=== PATIENT | male | born 1950 | race Caucasian/White ===

== ENCOUNTER 2016-11-28 09:17 | Emergency (ER) | payer OTHER ==
[~2016-11-28] VITALS: Ht 165.1 cm; Wt 68.0 kg
[~2016-11-28 09:17] MED LIST: ADVAIR 250/501 EA INH; ADVAIR 500/501 E1 INH; ALBUTEROL0.09 MG/A2 INH; ASPIRIN CHEWABL81 MG PO; BLOOD PRESSURE; CLARITIN10 MG PO; CLONIDINE0.1 MG; FERROUS SULFATE; FIORICET 325 MG1 TAB PO; FLOVENT 110 M110 MCG INH; FUROSEMIDE40 MG; LISINOPRIL AND1 TAB PO; MEDROL DOSEPAK4 MG PO; METOPROLOL SR50 MG; NORCO 325 MG-51 TAB PO; NORVASC5 MG; PREDNICOT20 MG PO; PROTONIX20 MG PO; PROVENTIL0.09 MG/AC IH; SIMVASTATIN10 MG PO; SPIRIVA -- 3018 MCG PO; TESSALON PERLE200 MG PO; VENTOLIN H0.09 MG/AC INH; VISTARIL25 M1 PO; ZITHROMAX Z PA250 MG PO; ZOFRAN ODT4 MG SL
[2016-11-28] MEDS ORDERED: SUNMARK OMEPRAZ20 M1 PO (09:29)
[2016-11-28] MEDS ORDERED: CORTISPORIN SUS10 ML OT (09:43)
== END 2016-11-28 09:54 | disposition home or self-care (01) ==
LOC: ED 09:17
DX: T16.1XXA Foreign body in right ear, initial encounter (principal); I10 Essential (primary) hypertension; J44.9 Chronic obstructive pulmonary disease, unspecified; K21.9 Gastro-esophageal reflux disease without esophagitis; Z79.899 Other long term (current) drug therapy; Z79.82 Long term (current) use of aspirin; F17.200 Nicotine dependence, unspecified, uncomplicated; V89.2XXA Person injured in unspecified motor-vehicle accident, traffic, initial encounter; Y93.89 Activity, other specified; Y92.89 Other specified places as the place of occurrence of the external cause; Y99.9 Unspecified external cause status

== ENCOUNTER 2017-10-08 11:22 | Emergency (ER) | payer OTHER ==
[~2017-10-08] VITALS: Wt 72.6 kg
[~2017-10-08 11:22] MED LIST changes: +CORTISPORIN SUS10 ML OT; +SUNMARK OMEPRAZ20 M1 PO
[2017-10-08] MEDS ORDERED: Motrin,Rufen800 MG PO (12:21)
== END 2017-10-08 12:26 | disposition home or self-care (01) ==
LOC: ED 11:22
DX: S39.012A Strain of muscle, fascia and tendon of lower back, initial encounter (principal); J44.9 Chronic obstructive pulmonary disease, unspecified; I10 Essential (primary) hypertension; K21.9 Gastro-esophageal reflux disease without esophagitis; N17.9 Acute kidney failure, unspecified; E78.5 Hyperlipidemia, unspecified; F17.200 Nicotine dependence, unspecified, uncomplicated; F10.10 Alcohol abuse, uncomplicated; Z90.89 Acquired absence of other organs; Z79.82 Long term (current) use of aspirin; Z79.899 Other long term (current) drug therapy; W22.8XXA Striking against or struck by other objects, initial encounter; Y93.89 Activity, other specified; Y92.89 Other specified places as the place of occurrence of the external cause; Y99.8 Other external cause status

== ENCOUNTER 2019-06-09 18:37 | Emergency (ER) | payer OTHER ==
[~2019-06-09] VITALS: Ht 165.1 cm; Wt 68.5 kg
[~2019-06-09 18:37] MED LIST changes: +Motrin,Rufen800 MG PO
[2019-06-09] MEDS ORDERED: PREDNISONE20 M1 PO (20:10)
== END 2019-06-09 20:25 | disposition home or self-care (01) ==
LOC: ED 18:37
DX: L24.0 Irritant contact dermatitis due to detergents (principal); F17.200 Nicotine dependence, unspecified, uncomplicated; Z79.82 Long term (current) use of aspirin; Z79.899 Other long term (current) drug therapy

== ENCOUNTER 2019-07-02 18:36 | Emergency (ER) | payer OTHER ==
[~2019-07-02] VITALS: Ht 167.6 cm; Wt 70.3 kg
[~2019-07-02 18:36] MED LIST changes: +PREDNISONE20 M1 PO
[2019-07-02] MEDS ORDERED: ELIMITE 5%60 GM T (18:47)
[2019-07-02] MEDS ORDERED: PREDNISONE20 M1 PO (18:47)
== END 2019-07-02 19:09 | disposition home or self-care (01) ==
LOC: ED 18:36
DX: L30.9 Dermatitis, unspecified (principal); F17.200 Nicotine dependence, unspecified, uncomplicated; Z79.899 Other long term (current) drug therapy; Z79.82 Long term (current) use of aspirin

== ENCOUNTER → 2021-07-26 | Outpatient (CLI) | payer OTHER ==
[~2021-07-26] MED LIST changes: +ELIMITE 5%60 GM T
== END | disposition home or self-care (01) ==
LOC: CT 12:57
PROVIDERS: ATTEND Nurse Practitioner Primary Care
DX: R41.0 Disorientation, unspecified (principal); R47.01 Aphasia

== ENCOUNTER → 2021-08-01 | Outpatient (CLI) | payer OTHER | END | disposition home or self-care (01) | LOC: US 09:00 | PROVIDERS: ATTEND Nurse Practitioner Primary Care | DX: I71.4 Abdominal aortic aneurysm, without rupture (principal) ==

== ENCOUNTER → 2021-08-19 | Outpatient (CLI) | payer OTHER | END | disposition home or self-care (01) | LOC: MRI 08-12 09:00 | PROVIDERS: ATTEND Nurse Practitioner Primary Care | DX: R51.9 Headache, unspecified (principal); R47.01 Aphasia; I10 Essential (primary) hypertension; R41.0 Disorientation, unspecified; G89.29 Other chronic pain ==

== ENCOUNTER 2022-02-02 01:39 | Emergency (ER) | payer OTHER ==
[~2022-02-02] VITALS: Ht 167.6 cm; Wt 77.1 kg
[2022-02-02 04:54] LABS: BASO % 0.5 % (0.0-1.0); EOS # 0.2 10*3/uL (0.0-0.4); EOS % 3.1 % (1.0-4.0); HEMATOCRIT 44.8 % (42.0-52.0); LYMPH # 1.7 10*3/uL (1.3-4.4); LYMPH % 30.5 % (27.0-41.0); MEAN CORPUSCULAR HGB 27.3 pg (27.0-31.0); MEAN CORPUSCULAR HGB CONC 32.1 g/dl (33.0-37.0); MEAN PLATELET VOLUME 9.8 fl (9.6-12.3); MONO # 0.4 10*3/uL (0.1-1.0); MONO % 7.5 % (3.0-9.0); NEUT # 3.2 10*3/uL (2.3-7.9); PLATELET COUNT AUTOMATED 232 10*3/uL (130-400); RED BLOOD COUNT 5.27 10*6/uL (4.50-5.90); RED CELL DISTRI WIDTH 14.3 % (0-14.5); WHITE BLOOD COUNT 5.5 10*3/uL (4.8-10.8)
[2022-02-02 05:21] LABS: BUN 14 mg/dl (7-24); CHLORIDE 104 mmol/L (98-107); CREATININE 0.99 mg/dL (0.70-1.30); POTASSIUM 3.7 mmol/L (3.5-5.1); SODIUM 135 mmol/L (136-145)
[2022-02-02] MEDS ORDERED: NAPROXEN250 MG PO (08:50)
[2022-02-02] MEDS ORDERED: CEPHALEXIN500 M1 PO (08:50)
[2022-02-02] MEDS ORDERED: TYLENOL325 M1 PO (08:50)
== END 2022-02-02 09:30 | disposition home or self-care (01) ==
LOC: ED 01:39
PROVIDERS: Emergency Medicine
DX: S51.011A Laceration without foreign body of right elbow, initial encounter (principal); F10.920 Alcohol use, unspecified with intoxication, uncomplicated; W18.39XA Other fall on same level, initial encounter; Y93.89 Activity, other specified; Y92.89 Other specified places as the place of occurrence of the external cause; Y99.8 Other external cause status

== ENCOUNTER → 2023-08-20 | Outpatient (CLI) | payer OTHER ==
[~2023-08-20] MED LIST changes: +CELECOXIB200 M1 PO; +CEPHALEXIN500 M1 PO; +MEMANTINE HCL10 MG PO; +METOPROLOL SUCC25 M2 PO; +NAPROXEN250 MG PO; +NATURE'S BLEND F1 MG PO; +NEURONTIN300 MG PO; +PRAVASTATIN SOD40 MG PO; +TYLENOL325 M1 PO
[2023-08-20 16:05] LABS: POTASSIUM 4.4 mmol/L (3.4-5.1)
== END | disposition home or self-care (01) ==
LOC: MRI 14:00 → LAB 14:37
PROVIDERS: ATTEND Internal Medicine
DX: I67.89 Other cerebrovascular disease (principal); J43.9 Emphysema, unspecified; R42 Dizziness and giddiness; R53.1 Weakness

== ENCOUNTER → 2023-08-21 | Outpatient (CLI) | payer OTHER | END | disposition home or self-care (01) | LOC: CT 01:08 | PROVIDERS: ATTEND Internal Medicine | DX: I67.82 Cerebral ischemia (principal) ==

== ENCOUNTER 2024-04-01 21:25 | Inpatient (IN) | payer OTHER ==
[~2024-04-01] VITALS: Ht 165.1 cm; Wt 74.8 kg
[2024-04-01 21:28] VITALS: BP 97/59
[2024-04-01] MEDS ORDERED: methylPREDNISolone sod succ 125 MG VIAL IM ONE (21:30)
[2024-04-01] MEDS ORDERED: SODIUM CHLORIDE 0.9% 1,000 ML IV ONE ×3 (21:40→23:45)
[2024-04-01] MEDS ORDERED: Ceftriaxone Sodium 1 GM/10 ML SYR IV ONE (21:40)
[2024-04-01 21:45] LABS: BASO % 0.3 % (0.0-1.0); EOS % 0.1 % (1.0-4.0); LYMPH # 1.1 10*3/uL (1.3-4.4); LYMPH % 7.6 % (27.0-41.0); MEAN CELL VOLUME 86.5 fl (80.0-94.0); MEAN CORPUSCULAR HGB 26.8 pg (27.0-31.0); MEAN PLATELET VOLUME 10.4 fl (9.6-12.3); MONO % 7.3 % (3.0-9.0); NEUT # 11.8 10*3/uL (2.3-7.9); NEUT % 84.5 % (47.0-73.0); PLATELET COUNT AUTOMATED 265 10*3/uL (130-400); RED BLOOD COUNT 6.01 10*6/uL (4.50-5.90); RED CELL DISTRI WIDTH 14.7 % (0-14.5); WHITE BLOOD COUNT 13.9 10*3/uL (4.8-10.8)
[2024-04-01 22:01] LABS: POTASSIUM 4.6 mmol/L (3.4-5.1); TOTAL PROTEIN 8.1 gm/dL (6.0-8.0)
[2024-04-01] MEDS ORDERED: METOPROLOL SUCC25 M2 PO (22:37)
[2024-04-01] MEDS ORDERED: AZITHROMYCIN 250 MG TAB PO ONE (22:40)
[2024-04-01] MEDS ORDERED: NICOTINE POLACRILEX 4 MG GUM PO PRN (23:35)
[2024-04-01] MEDS ORDERED: Magnesium Hydroxide 30 ML UDC PO PRN (23:35)
[2024-04-01] MEDS ORDERED: BISACODYL 5 MG TAB PO PRN (23:35)
[2024-04-01] MEDS ORDERED: Nicotine 21 MG PATCH T PRN (23:35)
[2024-04-01] MEDS ORDERED: Albuterol Sulf/Ipratropium 3 ML VIAL NEB SCH (23:40)
[2024-04-02] MEDS ORDERED: Chlordiazepoxide Hydrochlori 25 MG CAP PO SCH
[2024-04-02] MEDS ORDERED: Benzocaine/Menthol 1 LOZ LOZENGE PO PRN (01:00)
[2024-04-02] MEDS ORDERED: MENTHOL USP 1 LOZ LOZENGE PO PRN (01:00)
[2024-04-02 01:15] VITALS: BP 134/90
[2024-04-02 02:26] LABS: HEMATOCRIT 44.5 % (42.0-52.0); MEAN CELL VOLUME 86.4 fl (80.0-94.0); MEAN CORPUSCULAR HGB CONC 31.2 g/dl (33.0-37.0); MEAN PLATELET VOLUME 10.2 fl (9.6-12.3); PLATELET COUNT AUTOMATED 189 10*3/uL (130-400); RED BLOOD COUNT 5.15 10*6/uL (4.50-5.90); RED CELL DISTRI WIDTH 14.6 % (0-14.5); WHITE BLOOD COUNT 11.5 10*3/uL (4.8-10.8)
[2024-04-02 02:31] LABS: MANUAL DIFF REFLEX YES
[2024-04-02 02:51] LABS: FREE T4 0.99 ng/dl (0.89-1.76)
[2024-04-02 02:53] LABS: POTASSIUM 5.7 mmol/L (3.4-5.1)
[2024-04-02 02:57] LABS: PLATELET SUFFICIENCY NORMAL (NORMAL); TOTAL CELLS COUNTED 100 #CELLS
[2024-04-02] MEDS ORDERED: CALCIUM GLUC IN NACL, ISO-OSM 100 ML IV ONE (03:30)
[2024-04-02] MEDS ORDERED: DEXTROSE 10 % IN WATER 250 ML DEHP.FR.BG IV ONE (03:35)
[2024-04-02] MEDS ORDERED: Insulin Lispro, Recombinant 1 UNIT/0.01 ML UN SC ONE (03:35)
[2024-04-02] MEDS ORDERED: CALCIUM GLUCONATE 1 GM/10 ML VIAL ONE (04:28)
[2024-04-02] MEDS ORDERED: INSULIN LISPRO 1 UNIT/0.01 ML SQ ONE (04:30)
[2024-04-02] MEDS ORDERED: SODIUM POLYSTYRENE SULFONATE 15 GM/60 ML BOT PO ONE (06:35)
[2024-04-02] MEDS ORDERED: DEXTROSE 10 % IN WATER 250 ML IV PRN (06:35)
[2024-04-02] MEDS ORDERED: INSULIN LISPRO 1 UNIT/0.01 ML SQ SCH (07:30)
[2024-04-02 08:00] VITALS: BP 138/74
[2024-04-02 08:01] LABS: POTASSIUM 4.9 mmol/L (3.4-5.1)
[2024-04-02] MEDS ORDERED: GUAIFENESIN 600 MG TAB ER PO SCH (10:00)
[2024-04-02] MEDS ORDERED: HEPARIN SODIUM 5,000 UNIT/ML VIAL SC SCH (10:00)
[2024-04-02] MEDS ORDERED: Thiamine 100 MG TAB PO SCH (10:00)
[2024-04-02] MEDS ORDERED: MULTIVITAMIN 1 TAB TAB PO SCH (10:00)
[2024-04-02] MEDS ORDERED: FOLIC ACID 1 MG TAB PO SCH (10:00)
[2024-04-02] MEDS ORDERED: methylPREDNISolone sod succ 40 MG VIAL IV SCH (10:00)
[2024-04-02 12:00] VITALS: BP 158/98
[2024-04-02 13:20] LABS: POTASSIUM 4.8 mmol/L (3.4-5.1)
[2024-04-02 14:00] VITALS: BP 136/81
[2024-04-02] MEDS ORDERED: Metoprolol Tartrate 5 MG/5 ML VIAL IV ONE (16:45)
[2024-04-02 16:58] VITALS: BP 139/77
[2024-04-02 20:00] VITALS: BP 131/94
[2024-04-02] MEDS ORDERED: Ceftriaxone Sodium 1 GM in SYRINGE INFUSION 10 ML IV SCH (22:00)
[2024-04-02] MEDS ORDERED: METOPROLOL SUCCINATE XR 25 MG TAB PO SCH (22:00)
[2024-04-02] MEDS ORDERED: AZITHROMYCIN 250 ML IV SCH (22:00)
[2024-04-03] VITALS: BP 138/68
[2024-04-03] MEDS ORDERED: Chlordiazepoxide Hydrochlori 25 MG CAP PO SCH (02:00)
[2024-04-03 05:15] LABS: POTASSIUM 4.8 mmol/L (3.4-5.1)
[2024-04-03] MEDS ORDERED: OMEPRAZOLE 20 MG CAP PO SCH (06:00)
[2024-04-03 06:11] LABS: BASO % 0.1 % (0.0-1.0); HEMATOCRIT 39.6 % (42.0-52.0); LYMPH # 0.6 10*3/uL (1.3-4.4); LYMPH % 4.9 % (27.0-41.0); MEAN CELL VOLUME 84.8 fl (80.0-94.0); MEAN CORPUSCULAR HGB 27.2 pg (27.0-31.0); MEAN CORPUSCULAR HGB CONC 32.1 g/dl (33.0-37.0); MEAN PLATELET VOLUME 11.4 fl (9.6-12.3); MONO # 0.7 10*3/uL (0.1-1.0); MONO % 5.3 % (3.0-9.0); NEUT # 11.4 10*3/uL (2.3-7.9); NEUT % 89.5 % (47.0-73.0); PLATELET COUNT AUTOMATED 213 10*3/uL (130-400); RED BLOOD COUNT 4.67 10*6/uL (4.50-5.90); RED CELL DISTRI WIDTH 14.6 % (0-14.5); WHITE BLOOD COUNT 12.7 10*3/uL (4.8-10.8)
[2024-04-03 08:00] VITALS: BP 156/85
[2024-04-03] MEDS ORDERED: Pantoprazole Sodium 40 MG TAB PO SCH (09:15)
[2024-04-03] MEDS ORDERED: LISINOPRIL 10 MG TAB PO SCH (10:00)
[2024-04-03] MEDS ORDERED: Piperacillin Sodium/Tazobact 2.25 GM in SODIUM CHLORIDE 0.9% 50 ML IV SCH (10:00)
[2024-04-03] MEDS ORDERED: HYDROCHLOROTHIAZIDE 12.5 MG CAP PO SCH (10:00)
[2024-04-03] MEDS ORDERED: GABAPENTIN 300 MG CAP PO SCH (10:00)
[2024-04-03] MEDS ORDERED: METOPROLOL SUCCINATE XR 50 MG TAB PO SCH (10:00)
[2024-04-03] MEDS ORDERED: ASPIRIN, CHEWABLE 81 MG TAB PO SCH (10:00)
[2024-04-03 12:00] VITALS: BP 149/80
[2024-04-03 16:00] VITALS: BP 144/78
[2024-04-03 20:00] VITALS: BP 129/76
[2024-04-03] MEDS ORDERED: Mirtazapine 15 MG TAB PO SCH (22:00)
[2024-04-04] VITALS: BP 138/86
[2024-04-04] MEDS ORDERED: Chlordiazepoxide Hydrochlori 25 MG CAP PO SCH (02:00)
[2024-04-04] MEDS ORDERED: Pantoprazole Sodium 40 MG VIAL IV SCH (06:00)
[2024-04-04 06:28] LABS: POTASSIUM 4.2 mmol/L (3.4-5.1)
[2024-04-04 06:43] LABS: HEMATOCRIT 37.3 % (42.0-52.0); LYMPH # 0.7 10*3/uL (1.3-4.4); LYMPH % 8.3 % (27.0-41.0); MEAN CELL VOLUME 82.7 fl (80.0-94.0); MEAN CORPUSCULAR HGB 27.5 pg (27.0-31.0); MEAN CORPUSCULAR HGB CONC 33.2 g/dl (33.0-37.0); MEAN PLATELET VOLUME 11.2 fl (9.6-12.3); MONO # 0.5 10*3/uL (0.1-1.0); MONO % 5.8 % (3.0-9.0); NEUT % 85.4 % (47.0-73.0); PLATELET COUNT AUTOMATED 204 10*3/uL (130-400); RED BLOOD COUNT 4.51 10*6/uL (4.50-5.90); RED CELL DISTRI WIDTH 14.6 % (0-14.5); WHITE BLOOD COUNT 8.2 10*3/uL (4.8-10.8)
[2024-04-04 08:00] VITALS: BP 134/88
[2024-04-04] MEDS ORDERED: Pantoprazole Sodium 40 MG IV SCH (10:00)
[2024-04-04 12:00] VITALS: BP 146/79
[2024-04-04 16:00] VITALS: BP 154/86
[2024-04-04 20:00] VITALS: BP 152/89
[2024-04-05] VITALS: BP 136/86
[2024-04-05 06:31] LABS: BASO % 0.1 % (0.0-1.0); HEMATOCRIT 38.7 % (42.0-52.0); LYMPH # 0.9 10*3/uL (1.3-4.4); MEAN CELL VOLUME 83.2 fl (80.0-94.0); MEAN CORPUSCULAR HGB 27.3 pg (27.0-31.0); MEAN CORPUSCULAR HGB CONC 32.8 g/dl (33.0-37.0); MEAN PLATELET VOLUME 10.2 fl (9.6-12.3); MONO # 0.3 10*3/uL (0.1-1.0); MONO % 4.4 % (3.0-9.0); NEUT # 5.7 10*3/uL (2.3-7.9); NEUT % 80.9 % (47.0-73.0); PLATELET COUNT AUTOMATED 224 10*3/uL (130-400); RED BLOOD COUNT 4.65 10*6/uL (4.50-5.90); RED CELL DISTRI WIDTH 14.6 % (0-14.5)
[2024-04-05 08:00] VITALS: BP 167/92
[2024-04-05 08:10] LABS: POTASSIUM 4.4 mmol/L (3.4-5.1)
[2024-04-05] MEDS ORDERED: PROTONIX40 MG PO (10:45)
[2024-04-05] MEDS ORDERED: TAB-A-VITE TA400 MCG PO (10:45)
[2024-04-05] MEDS ORDERED: NATURE'S BLEND100 M2 PO (10:45)
[2024-04-05] MEDS ORDERED: METOPROLOL SUCC50 M1 PO (10:45)
[2024-04-05] MEDS ORDERED: VIBRAMYCIN100 MG PO (10:45)
[2024-04-05] MEDS ORDERED: PREDNISONE10 MG PO (10:45)
[2024-04-05 12:00] VITALS: BP 163/80
== END 2024-04-05 14:23 | disposition home or self-care (01) | DRG 871 ==
LOC: ED 21:25 → 4E 22:24 → EDHOLD 22:24 → 4E 23:44
PROVIDERS: Family Medicine; Nurse Practitioner Family; Registered Nurse; Student in an Organized Health Care Education/Training Program; ADMIT Internal Medicine; ATTEND Internal Medicine
DX: A41.9 Sepsis, unspecified organism (principal); J15.69 Pneumonia due to other Gram-negative bacteria; J96.01 Acute respiratory failure with hypoxia; J44.1 Chronic obstructive pulmonary disease with (acute) exacerbation; N17.9 Acute kidney failure, unspecified; E87.1 Hypo-osmolality and hyponatremia; E87.20 Acidosis, unspecified; R65.20 Severe sepsis without septic shock; F17.210 Nicotine dependence, cigarettes, uncomplicated; E87.8 Other disorders of electrolyte and fluid balance, not elsewhere classified; N18.9 Chronic kidney disease, unspecified; R73.9 Hyperglycemia, unspecified; E88.09 Other disorders of plasma-protein metabolism, not elsewhere classified; F10.20 Alcohol dependence, uncomplicated; E78.5 Hyperlipidemia, unspecified; I10 Essential (primary) hypertension; I72.9 Aneurysm of unspecified site; K52.9 Noninfective gastroenteritis and colitis, unspecified; Z71.6 Tobacco abuse counseling; Z88.5 Allergy status to narcotic agent; Z88.6 Allergy status to analgesic agent; Z79.51 Long term (current) use of inhaled steroids; Z79.899 Other long term (current) drug therapy; Z79.82 Long term (current) use of aspirin

== ENCOUNTER → 2024-08-25 | Outpatient (CLI) | payer OTHER ==
[~2024-08-25] MED LIST changes: +METOPROLOL SUCC50 M1 PO; +MIRTAZAPINE15 M2 PO; +NATURE'S BLEND100 M2 PO; +NORVASC5 MG PO; +PREDNISONE10 MG PO; +PROTONIX40 MG PO; +TAB-A-VITE TA400 MCG PO; +TIOTROPIUM BRO18 MCG INH; +VIBRAMYCIN100 MG PO; +ZESTRIL10 MG PO
== END | disposition home or self-care (01) ==
LOC: CT 07-12 11:00
PROVIDERS: ATTEND Internal Medicine Critical Care Medicine
DX: R91.8 Other nonspecific abnormal finding of lung field (principal); J44.9 Chronic obstructive pulmonary disease, unspecified; J45.50 Severe persistent asthma, uncomplicated; J43.2 Centrilobular emphysema; G47.33 Obstructive sleep apnea (adult) (pediatric); Z87.891 Personal history of nicotine dependence; I71.23 Aneurysm of the descending thoracic aorta, without rupture

== ENCOUNTER → 2025-03-01 | Outpatient (CLI) | payer OTHER ==
[~2025-03-01] MED LIST changes: +ATORVASTATIN CA40 M1 PO; +CELECOXIB200 MG PO; +LISINOPRIL10 M1 PO; +SPIRIVA -- 3018 MCG INH; +TOPROL XL25 MG PO; +ZESTORETIC 10-1 EACH PO
[2025-03-01 12:36] LABS: BASO # 0.1 10*3/uL (0.0-0.1); BASO % 0.8 % (0.0-1.0); EOS # 0.3 10*3/uL (0.0-0.4); EOS % 4.1 % (1.0-4.0); HEMATOCRIT 47.1 % (42.0-52.0); MEAN CELL VOLUME 85.2 fl (80.0-94.0); MEAN CORPUSCULAR HGB 26.4 pg (27.0-31.0); MEAN PLATELET VOLUME 9.8 fl (9.6-12.3); MONO # 0.5 10*3/uL (0.1-1.0); MONO % 7.9 % (3.0-9.0); NEUT # 3.6 10*3/uL (2.3-7.9); NEUT % 54.8 % (47.0-73.0); PLATELET COUNT AUTOMATED 285 10*3/uL (130-400); RED BLOOD COUNT 5.53 10*6/uL (4.50-5.90); RED CELL DISTRI WIDTH 15.9 % (0-14.5); WHITE BLOOD COUNT 6.6 10*3/uL (4.8-10.8)
[2025-03-01 13:12] LABS: POTASSIUM 5.1 mmol/L (3.4-5.1); TOTAL PROTEIN 7.8 gm/dL (6.0-8.0)
== END | disposition home or self-care (01) ==
LOC: LAB 12:09 → US 12:30
PROVIDERS: Nurse Practitioner; ATTEND Nurse Practitioner Adult Health
DX: Z12.5 Encounter for screening for malignant neoplasm of prostate (principal); I71.40 Abdominal aortic aneurysm, without rupture, unspecified; N28.89 Other specified disorders of kidney and ureter; D40.0 Neoplasm of uncertain behavior of prostate; N19 Unspecified kidney failure; R53.83 Other fatigue; N28.1 Cyst of kidney, acquired